=== PATIENT | male | born 1940 | race Caucasian/White ===

== ENCOUNTER → 2024-11-13 10:49 | Outpatient (CLI) | payer MEDICARE, SELFPAY ==
--- NOTE | 2024-11-13 15:08 | ST.SWALLOW ---
Visit Care Team Role Provider Type Nina Macdonald PA-C Attending Provider Non-Staff Primary Care Provider Referring Provider Specialty: Medical Address: [facility], [address] [place], [place], [address] Email: Modified Barium Swallow Study [employer] Modified Barium Swallow Study Start: 11/13/24 12:34 Freq: Status: Active Protocol: Document 11/13/24 12:36 LNK (Rec: 11/13/24 13:29 LNK Desktop) Modified Barium Swallow Study Total Time Visit Start Time 11:30 Visit Stop Time 12:15 Total Visit Minutes 45 Referral Referring Physician CRISTAL Rangel Reason for Referral aspiration Setting Setting Outpatient Care Patient Information Identification Type Name,Date of Patient History Pt was seen fore a Modified Barium Swallow Study re: concerns over having had aspirated material in one of his lungs. The pt and his stated that he had a procedure that indicated bronchectasis with suspicion of aspiration. Pt underwent EGD that was reported to the pt as WNL. A small pouch with nothing in it was described by the physician performing EGD to the pt. No other information was received from PCP prior to the MBSS. Pt denied a PMH of GERD or neurological diagnoses . His noted an incident years ago during which the pt had seizures that required hospitalization. Once he fell backward during a seizure and hit his head. After that, the pt had a facial droop on one side of his face, which eventually resolved. According to the pt, he has a dry cough frequently during the day. He also reported that he will frequently regurgitate undigested food after eating. Sometimes he will simply get up from the table and throw up what he had just eaten. His reported tha6t the pt eats fast during meals, drinking liquids occasionally. Subjective Pt was accompanied by his who, along with the pt, Observations provided background information. Pt was seated in the flouroscopy chair with directions and procedures explained for him. He indicated he understood and agreed to proceed. Patient Positioning Position View Lat-A/P Imaging Lateral View Textures Administered Trials Presented Thin Liquid via Spoon (IDDSI 0),Thin Liquid via Cup ( IDDSI 0),Extremely Thick Liquid via Spoon (IDDSI 4), Regular (IDDSI 7) Barium Tablet Yes The IDDSI Framework Protocol: IDDSI.1 Oral Impairment Source: The Modified Barium Swallow Impairment Profile (MBSImP??) Lip Closure No labial escape Tongue Control Cohesive bolus between tongue to palatal seal During Bolus Hold Bolus Preparation/ Timely & efficient chewing & mashing Mastication Bolus Transport/ Brisk tongue motion Lingual Motion Oral Residue Complete oral clearance Initiation of Bolus head at posterior angle of ramus (first hyoid Pharyngeal Swallow excursion) Additional Oral Oral phase of swallow WNL Impairment *OME and DKS were observed to be WNL. Observations *Dentition natural and in good hygiene *Mastication observed with rotary chew pattern. Missing some posterior teeth that did not interfere with mastication *Good bolus formation, control and AP transition. *Velopharyngeal closure was WNL. Pharyngeal Impairment Source: The Modified Barium Swallow Impairment Profile (MBSImP??) Soft Palate No bolus between soft palate & pharyngeal wall Elevation Laryngeal Elevation Comp.sup.move.thyroid cart.w/comp.approx.arytenoids to epiglot petiole Anterior Hyoid Complete anterior movement Excursion Epiglottic Movement Complete inversion Laryngeal Vestibular Complete; no air/contrast in laryngeal vestibule Closure Pharyngeal Stripping Present - complete Wave Pharyngoesophageal Complete distention & complete duration; no obstruction Segment Opening of flow Tongue Base No contrast between tongue base & posterior pharyngeal Retraction wall Pharyngeal Residue Complete pharyngeal clearance Additional Pharyngeal phase of swallow WNL Pharyngeal *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 The contrast seen in the diverticulum was minimal and was cleared with subsequent swallows. This did not appear to be related to the pt description of vomiting large quantities of foods. *Flash penetration x1 observed, which is considered WNL for pt's age. *No residual contrast remained within the larynx. *No penetration with residual *No aspiration observed across all trials A/P View Textures Administered Trials Presented Thin Liquid via Cup (IDDSI 0) The IDDSI Framework Protocol: IDDSI.1 A/P View Observations Pharyngeal Complete Contraction Esophageal Clearance Complete clearance; esophageal coating Upright Position Vocal Fold Function Good Esophageal Function Slowed Clearing,Stasis Additional A-P *In AP position, residual contrast was observed at mid- Observations chest level. A water wash did not clear the residual additional cookie trial observed partial flow to the stomach of the bolus, with remainder at mid-chest level. *All liquid trials were noted to clear the esophagus to the stomach. *The barium tablet was slow to clear the LES. The tablet remained at the LES when MBSS was stopped to minimize radiation exposure Clinical Impressions Dysphagia Type Esophageal Findings *The pt presented with normal oropharyngeal phases of swallowing. No tracheal penetration with residual or tracheal aspiration were observed. *Pt able to protect airway WNL *Esophageal observation noted contrast residual mid- chest that did not clear with water wash. Partial retention of AP cookie trial mid-chest. Barium liquid cleared the esophagus to the stomach in a timely manner. However, the barium tablet did not clear to the stomach during MBSS. MBSS was stopped after a few minutes to reduce radiation exposure. *As pt and reported that the pt is a fast eater, it may be that when there is food/liquid residual within the mid esophageal area that has not cleared to the stomach, additional food/liquid rapidly is likely to stack' within the esophagus to the point of vomiting. *The pt was counseled to slow eating rate, chew food very well and drink liquids more frequently. Slowing rate of intake would reduce the stacking within the esophagus and therefore reduce the need to vomit. Additionally, pt was encouraged to remain upright following meals for at least an hour to allow for gravity assist in esophageal clearing to the stomach. Patient Appropriate No for Therapy Recommendations Diet Comments No change in diet recommended Aspiration Precautions Recommended Frequent Rest Periods Precautions Additional chew well, slow rate of intake. Drink fluids during Precautions meals to aid gravity
== END ==
PROVIDERS: PCP Physician Assistant; Referring Provider Physician Assistant; Visit Provider Physician Assistant
DX: T17.800A Unspecified foreign body in other parts of respiratory tract causing asphyxiation, initial encounter (principal); J47.9 Bronchiectasis, uncomplicated
CPT/HCPCS: 74230; 92611